=== PATIENT | female | born 1985 | race Two or more races ===

== ENCOUNTER 2019-02-18 05:05 | Inpatient (IN) | payer OTHER ==
[2019-02-18 06:13] LABS: BASO % 0.5 % (0-2.0); EOS % 0.8 % (0-4.5); HEMATOCRIT 39.6 % (32.4-45.2); HEMOGLOBIN 13.8 GM/dL (10.7-15.3); LYMPH % 24.1 % (8-40); MEAN CELL VOLUME 94.4 fl (80-96); MEAN PLT VOLUME 7.4 fl (7.5-11.1); MONO % 12.6 % (3.8-10.2); PLATELET COUNT 274 K/MM3 (134-434); RBC 4.19 M/mm3 (3.60-5.2); RDW 13.2 % (11.6-15.6); WHITE BLOOD COUNT 7.7 K/mm3 (4.0-10.0)
[2019-02-18] MEDS ORDERED: AMPICILLIN SODIUM 2 GM VIAL ONE (06:26)
[2019-02-18 06:28] LABS: INR 0.94 (0.83-1.09); PROTHROMBIN TIME (PATIENT) 11.1 SEC (9.7-13.0)
[2019-02-18 06:30] LABS: ACTIVATED PTT 30.8 SECONDS (25.2-36.5)
[2019-02-18] MEDS ORDERED: AMPICILLIN - 2 GM in SODIUM CHLORIDE 100 ML IVPB STA (06:52)
[2019-02-18 06:59] VITALS: BMI 30.1
[2019-02-18] MEDS ORDERED: ELECTROLYTE-148 SOLN 500 ML IV ONE (07:00)
[2019-02-18 07:20] LABS: BLOOD UREA NITROGEN 8.1 mg/dL (7-18); CALCIUM 8.4 mg/dL (8.5-10.1); CREATININE 0.5 mg/dL (0.55-1.3); POTASSIUM 3.7 mmol/L (3.5-5.1)
[2019-02-18] MEDS ORDERED: OXYTOCIN 30 UNITS in 0.9% NS 30 UNIT/500 ML INFUS.BAG IVPB SCH (08:00)
[2019-02-18] MEDS ORDERED: ELECTROLYTE-148 SOLN 1,000 ML IV SCH (08:00)
--- NOTE | 2019-02-18 08:06 | HP ---
Past Medical History - Primary Care Physician PCP:: Blanca Guzmán - Admission Chief Complaint: 34 yrs 40 weeks iup srom since 4.30 am followed by pain History of Present Illness: pnc at , [facility] wt gain 25 lbs panel :07/25/18 : O pos, rpr nr, hbsag neg, rubella immune, sickle neg , rpr nr, hiv neg, pap -nilm, hpv neg, gc/ct neg , cf screen neg 11/18/18: 1 hr gct 140, Quantiferon neg 01/20/19 h/h 13./41.0, gc/ct neg, GBS POs , Hiv neg serial sono for growth were done by [facility] Ntt screen & AFP neg last sono 02/16/19 : 39 .5 wks, vx, afi20.1,efw 7'13"( 40 %tile ) , , bpp8/8, post placenta History Source: Patient, Medical Record - Past Medical History MATERIALS DIRECTOR: No: Migraine, Syncope Cardiovascular: No: HTN, Murmur Pulmonary: No: Asthma Gastrointestinal: Yes: Constipation Hepatobiliary: No: Hepatitis B, Hepatitis C Renal/: No: UTI ...: 4 ...Para: 1 (06/06/06 ;41 weeks ?5' at [facility] hosp) ...Term: 1 ...: 0 ...Spon : 1 (10/23) ...Induced : 1 (01/27) ...Multiple Gestation: 0 ...LMP: 05/24/18 ... Weeks Gestation by Dates: 38.4 ...EDC by Dates: 02/28/19 ...EDC by Sono: 02/18/19 Heme/Onc: No: Anemia Infectious Disease: Yes: STD's (h/o chlamydia in past). No: AIDS, HIV, MRSA, Tuberculosis Psych: No: Addictions, Anxiety, Bipolar, Depression, Panic, Psychosis, Schizophrenia, Other Endocrine: No: Diabetes Insipidus, Diabetes Mellitus, Hyperthyroidism, Hypothyroidism - Past Surgical History Past Surgical History: Yes: None Hx Myomectomy: No Hx Transabdominal Cerclage: No Additional Surgical History: h/o liposuction - Smoking History Smoking history: Never smoked Have you smoked in the past 12 months: No - Alcohol/Substance Use Hx Alcohol Use: No - Social History History of Recent Travel: No Home Medications - Allergies Allergies/Adverse Reactions: Allergies Allergy/AdvReac Type Severity Reaction Status Date / Time No Known Drug Allergies Allergy Mild Verified 02/18/19 05:52 seafood Allergy Intermediate Hives Uncoded 02/18/19 05:52 - Home Medications Home Medications: Ambulatory Orders Prenat 115/Iron Fum/Folic/Dss [ 19 Tablet] 1 tab PO DAILY 01/23/19 Physical Exam - Maternity Vital Signs: Vital Signs Temperature 98.5 F 02/18/19 07:00 Pulse Rate 86 02/18/19 07:00 Respiratory Rate 20 02/18/19 07:00 Blood Pressure 99/68 02/18/19 07:00 O2 Sat by Pulse Oximetry (%) Selected Entries 02/18/19 05:05 Temperature 98.1 F Pulse Rate 96 H Respiratory 18 Rate Blood Pressure 130/73 Weight 170 lb Constitutional: Yes: Well Nourished Eyes: Yes: WNL HENT: Yes: WNL, Normocephalic Cardiovascular: Yes: WNL Breast(s): Yes: WNL - Abdominal Exam/OB Fundal Height: 40 Number of Fetuses: Single Presentation: Vertex Contractions: Yes Regularity: Regular Intensity: Moderate Monitor Mode: External Heart Rate (range): 140 Heart Rate Location: Midline Category: I Accelerations: Uniform Decelerations: None - Vaginal Exam/OB Vaginal Bleediing: No Speculum Exam: Yes Dilatation (cm): 1-2 Effacement (%): 60 Amniotic Membrane Status: Ruptured Nitrazine Test: Positive Amniotic Fluid: Yes: Clear Presentation: Vertex/Position Station: -3 (exam at 7.45 AM) - Physical Exam Musculoskeletal: Yes: WNL Extremities: Yes: WNL. No: Calf Tenderness Edema: LLE: 1+, RLE: 1+ Integumentary: Yes: Tattoos Deep Tendon Reflex Grade: Normal +2 ...Motor Strength: WNL Psychiatric: Yes: WNL, Alert, Oriented - Labs Lab Results: CBC, BMP 02/18/19 05:20 02/18/19 05:20 Laboratory Tests 02/18/19 02/18/19 05:20 05:20 PT with INR 11.10 INR 0.94 PTT (Actin FS) 30.8 Blood Type O POSITIVE Antibody Screen Negative Problem List - Problems (1) 40 weeks gestation of Code(s): Z3A.40 - 40 WEEKS GESTATION OF (2) SROM (spontaneous rupture of membranes) Code(s): HWC2106 - (3) Positive GBS test Code(s): B95.1 - STREPTOCOCCUS, GROUP B, CAUSING DISEASES CLASSD ELSWHR Assessment/Plan 34 yrs , 40 weeks, gbs pos , admitted due to SROM , irregular UC Plan pitocin augmentation vaginal delivery trial Ampicillin prophylaxis for Pos Gbs
[2019-02-18] MEDS ORDERED: OXYTOCIN 30 UNITS in 0.9% NS 30 UNIT/500 ML INFUS.BAG IVPB ONE (08:20)
[2019-02-18] MEDS ORDERED: FENTANYL/BUPIVACAINE/NS/PF - PCEA - 50 ML DISP.SYRIN EP ONE ×2 (10:06→15:04)
[2019-02-18] MEDS ORDERED: AMPICILLIN SODIUM 1 GM VIAL ONE ×2 (10:07→14:41)
[2019-02-18] MEDS: AMPICILLIN - 1 GM in SODIUM CHLORIDE 100 ML IVPB SCH ×2 (10:15→14:15)
[2019-02-18] MEDS ORDERED: LIDO 2%/EPI 1:200000 PRESRVFRE (20 ML SDVIAL) ONE (10:54)
[2019-02-18] MEDS ORDERED: BUPIVACAINE HCL/PF 2.5 MG/ML - 30 ML VIAL IJ ONE (10:54)
[2019-02-18] MEDS ORDERED: NALOXONE HCL 0.4 MG/ML VIAL IVPUSH PRN (11:13)
[2019-02-18] MEDS ORDERED: FENTANYL/BUPIVACAINE/NS/PF - PCEA - 50 ML DISP.SYRIN EP SCH (11:15)
[2019-02-18] MEDS ORDERED: OXYTOCIN 20 UNITS in 0.9% NS 20 UNIT/1,000 ML INFUS.BAG IV ONE (15:02)
[2019-02-18] MEDS ORDERED: LIDOCAINE HCL 1% PRESERVATIVE FREE - 30ML VIAL ONE (15:02)
--- NOTE | 2019-02-18 15:12 | PN ---
Progress Note, Labor Vaginal Exam #1 Labor Exam Date: 02/18/19 Labor Exam Time: 10:10 Heart Rate (range): 135 Dilatation: 2-3 cm Effacement (%): 70 Amniotic Membrane Status: Ruptured Presentation: Vertex/Position Station: -3 (-3/-2) Remarks: fhr cat-1 uc - 2-4 min Pitocin augmentation started at 8.25 AM Vaginal Exam #2 Labor Exam Date: 02/18/19 Labor Exam Time: 15:00 Heart Rate (range): 140 Dilatation: 7-8 Effacement (%): 100 Amniotic Membrane Status: Ruptured Presentation: Vertex/Position Station: 0 Remarks: fhr cat-1 sometimes cat-2 , small variable down to 100 15 sec pt wants to push refrained from pushing 11.10 AM epidural labor analgesia was given Vaginal Exam #3 Labor Exam Date: 02/18/19 Labor Exam Time: 16:10 Heart Rate (range): 110-120 Dilatation: 10 Effacement (%): 100 Amniotic Membrane Status: Ruptured Presentation: Vertex/Position Station: +3 Remarks: pt pushing Selected Entries 02/18/19 15:30 Pulse Rate 115 H Blood Pressure 120/73
[2019-02-18] MEDS: OXYTOCIN 20 UNITS in 0.9% NS 20 UNIT/1,000 ML INFUS.BAG IV SCH (16:30)
[2019-02-18] MEDS ORDERED: BENZOCAINE 20% 57 GM BOTTLE TP PRN (16:59)
[2019-02-18] MEDS ORDERED: WITCH HAZEL 50% (TUCKS) 40 PAD/JAR PAD TP PRN (16:59)
[2019-02-18] MEDS ORDERED: BENZOCAINE 28 GM HEMORRHOIDAL OINTMENT TP PRN (16:59)
[2019-02-18] MEDS ORDERED: METHYLERGONOVINE MALEATE 0.2 MG/1 ML AMP IM PRN (16:59)
[2019-02-18] MEDS ORDERED: BISACODYL 10 MG SUPP.RECT RC PRN (16:59)
--- NOTE | 2019-02-18 17:25 | PN ---
Delivery - Delivery Vaginal Delivery: No Problems, Spontaneous (, vx MARY position, cord around neckx1 released before the delivery of shoulder , cord around arm x1 , released before delivery of the body , apgar9/9 , baby girl ,median epi was given , placenta & membranes delievered completlely .cord segment sent for cord blood gas & cord blood collected . trivascular cord noted . episiotomy sutured in layers with chr catgut #2/0 .CO ex mucosa & sphincter was intact) Type of Anesthesia: Local, Epidural Episiotomy/Laceration: Midline EBL (cc): 350 Delivery, Single - Stages of Labor Date 1st Stage Initiatied: 02/18/19 Time 1st Stage Initiated: 07:00 Date 2nd Stage Initiated: 02/18/19 Time 2nd Stage Initiated: 16:10 Date of Delivery: 02/18/19 Time of Delivery: 16:24 Date Placenta Delivered: 02/18/19 Time Placenta Delivered: 16:30 Placenta: Yes: Spontaneous, Uterine Exploration - Condition of Infant Cardiac Surgeon/Cardiology Physician Assistant Present: No Gender: Female Weight: 7 lb 12 oz Position: Right, OA (cord around neck x1 & cord around arm x1) - 1 Minute Total Score: 9 5 Minutes Total Score: 9 - Feeding Plan Initial Plan: Elected not to breastfeed exclusively throughout hospitalization Remarks - Remarks Remarks: 34 yrs , 40 weeks admitted in labor with SROM gbs pos , she received tota 3 doses of iv ampicillin intrapartum course uneventful
[2019-02-18] MEDS: FERROUS SO4 325 MG TABLET (FP) PO SCH (18:32)
[2019-02-18] MEDS ORDERED: ACETAMINOPHEN 325 MG TABLET (FP) ONE (19:45)
[2019-02-18] MEDS: IBUPROFEN 600 MG TABLET (FP) PO PRN (19:45)
[2019-02-18] MEDS ORDERED: IBUPROFEN 600 MG TABLET (FP) PO ONE (19:46)
[2019-02-18] MEDS: ACETAMINOPHEN 325 MG TABLET (FP) PO PRN (20:02)
[2019-02-19] MEDS: OXYTOCIN 20 UNITS in 0.9% NS 20 UNIT/1,000 ML INFUS.BAG IV SCH (00:26)
[2019-02-19] MEDS: ACETAMINOPHEN 325 MG TABLET (FP) PO PRN ×4 (00:26→19:10)
[2019-02-19] MEDS: IBUPROFEN 600 MG TABLET (FP) PO PRN ×2 (00:26→05:07)
[2019-02-19 08:08] LABS: BASO % 0.2 % (0-2.0); EOS % 0.4 % (0-4.5); HEMATOCRIT 37.1 % (32.4-45.2); HEMOGLOBIN 12.6 GM/dL (10.7-15.3); MCH 32.3 pg (25.7-33.7); MCHC 33.9 g/dl (32.0-36.0); MEAN CELL VOLUME 95.1 fl (80-96); MEAN PLT VOLUME 7.8 fl (7.5-11.1); MONO % 11.1 % (3.8-10.2); NEUT % 74.3 % (42.8-82.8); PLATELET COUNT 231 K/MM3 (134-434); RDW 13.3 % (11.6-15.6); WHITE BLOOD COUNT 12.2 K/mm3 (4.0-10.0)
--- NOTE | 2019-02-19 09:35 | PN ---
Post Progress Note - Subjective Subjective: c/o tiredness cramps Post Day: 1 Type of Delivery: Vital Signs: Vital Signs Temperature 98.8 F 02/19/19 06:00 Pulse Rate 76 02/19/19 06:00 Respiratory Rate 18 02/19/19 06:00 Blood Pressure 110/68 02/19/19 06:00 O2 Sat by Pulse Oximetry (%) 100 02/18/19 17:50 Breast Exam: Yes: Soft, Other (BF ). No: Engorged Uterus: Yes: Fundus Firm, Fundus below umbilicus, Non-tender Lochia: Yes: Rubra Lochia, amount: Moderate Extremities: Yes: Calves non-tender Perineum: Yes: Episiotomy (wound healing, no soreness ) Activity: Ambulating - Labs Labs: CBC WBC 12.2 K/mm3 (4.0-10.0) H 02/19/19 07:20 RBC 3.90 M/mm3 (3.60-5.2) 02/19/19 07:20 Hgb 12.6 GM/dL (10.7-15.3) 02/19/19 07:20 Hct 37.1 % (32.4-45.2) 02/19/19 07:20 MCV 95.1 fl (80-96) 02/19/19 07:20 MCH 32.3 pg (25.7-33.7) 02/19/19 07:20 MCHC 33.9 g/dl (32.0-36.0) 02/19/19 07:20 RDW 13.3 % (11.6-15.6) 02/19/19 07:20 Plt Count 231 K/MM3 (134-434) 02/19/19 07:20 MPV 7.8 fl (7.5-11.1) 02/19/19 07:20 Absolute Neuts (auto) 9.0 K/mm3 (1.5-8.0) H 02/19/19 07:20 Neutrophils % 74.3 % (42.8-82.8) 02/19/19 07:20 Lymphocytes % 14.0 % (8-40) D 02/19/19 07:20 Monocytes % 11.1 % (3.8-10.2) H 02/19/19 07:20 Eosinophils % 0.4 % (0-4.5) 02/19/19 07:20 Basophils % 0.2 % (0-2.0) 02/19/19 07:20 Nucleated RBC % 0 % (0-0) 02/19/19 07:20 Problem List - Problems (1) 40 weeks gestation of Code(s): Z3A.40 - 40 WEEKS GESTATION OF (2) SROM (spontaneous rupture of membranes) Code(s): QUU8248 - (3) Positive GBS test Code(s): B95.1 - STREPTOCOCCUS, GROUP B, CAUSING DISEASES CLASSD ELSWHR (4) (normal spontaneous vaginal delivery) Code(s): O80 - ENCOUNTER FOR FULL-TERM UNCOMPLICATED DELIVERY (5) Encounter for care after hospital delivery Code(s): Z39.2 - ENCOUNTER FOR ROUTINE FOLLOW-UP Assessment/Plan stable. plan d/c iv fluids ct pp care
[2019-02-19] MEDS: PRENATAL VITAMINS W/ FOLIC ACID TABLET (FP) PO SCH (09:45)
[2019-02-19] MEDS: FERROUS SO4 325 MG TABLET (FP) PO SCH ×2 (09:45→17:44)
[2019-02-19] MEDS: oxyCODONE HCL 5 MG TABLET PO PRN ×2 (09:49→19:10)
[2019-02-19] MEDS ORDERED: SENNOSIDES/DOCUSATE COMBO (SENNA PLUS) TABLET (UD) PO PRN (22:00)
[2019-02-20] MEDS: IBUPROFEN 600 MG TABLET (FP) PO PRN (03:52)
[2019-02-20] MEDS: oxyCODONE HCL 5 MG TABLET PO PRN (03:52)
--- NOTE | 2019-02-20 08:19 | DS ---
Physical Exam-RESTAURANT ASSISTANT Vital Signs: Vital Signs Temperature 98.3 F 02/19/19 22:00 Pulse Rate 82 02/19/19 22:00 Respiratory Rate 18 02/19/19 22:00 Blood Pressure 123/81 02/19/19 22:00 O2 Sat by Pulse Oximetry (%) 100 02/18/19 17:50 Constitutional: Yes: Well Nourished, Other (cramps tolerable) Eyes: Yes: WNL HENT: Yes: WNL Neck: Yes: WNL Cardiovascular: Yes: WNL Respiratory: Yes: WNL Gastrointestinal: Yes: WNL ...Rectal Exam: Yes: WNL Renal/: No: CVA Tenderness - Left, CVA Tenderness - Right ....Post : Yes: Uterus firm, Uterus non-tender, Moderate lochia rubra ( perineum healing, epi wound , no soreness) Breast(s): Yes: WNL (Bf, not engorged) Musculoskeletal: Yes: WNL Extremities: Yes: WNL. No: Calf Tenderness Edema: LLE: 1+, RLE: 1+ Integumentary: Yes: WNL Neurological: Yes: WNL, Alert, Oriented ...Motor Strength: WNL Psychiatric: Yes: WNL, Alert, Oriented Labs: CBC, BMP 02/19/19 07:20 02/18/19 05:20 Delivery - Delivery Vaginal Delivery: No Problems, Spontaneous (, vx MARY position, cord around neckx1 released before the delivery of shoulder , cord around arm x1 , released before delivery of the body , apgar9/9 , baby girl ,median epi was given , placenta & membranes delievered completlely .cord segment sent for cord blood gas & cord blood collected . trivascular cord noted . episiotomy sutured in layers with chr catgut #2/0 .[place] ex mucosa & sphincter was intact) Type of Anesthesia: Local, Epidural Episiotomy/Laceration: Midline EBL (cc): 350 Delivery, Single - Stages of Labor Date 1st Stage Initiatied: 02/18/19 Time 1st Stage Initiated: 07:00 Date 2nd Stage Initiated: 02/18/19 Time 2nd Stage Initiated: 16:10 Date of Delivery: 02/18/19 Time of Delivery: 16:24 Time Placenta Delivered: 16:30 Placenta: Yes: Spontaneous, Uterine Exploration - Condition of Infant Statement Distribution Clerk/Retail Solar Advisor Present: No Infant Gender: Female Weight: 7 lb 12 oz Position: Right, OA (cord around neck x1 & cord around arm x1) Total Hours ROM (Hrs/Mins): 12Hrs/0Mins - 1 Minute Total Score: 9 5 Minutes Total Score: 9 - Feeding Plan Initial Plan: Elected not to breastfeed exclusively throughout hospitalization Remarks - Remarks Remarks: 34 yrs , 40 weeks admitted in labor with SROM gbs pos , she received tota 3 doses of iv ampicillin intrapartum course uneventful pp course uneventful discharge today Discharge Summary Problems reviewed: Yes Reason For Visit: LABOR Current Active Problems 40 weeks gestation of (Acute) Encounter for care after hospital delivery (Acute) (normal spontaneous vaginal delivery) (Acute) Positive GBS test (Acute) SROM (spontaneous rupture of membranes) (Acute) Procedures: Principal: Hospital Course: uneventful Health Concerns: none Plan of Treatment: as directed Goals: maternal , well being Condition: Stable - Instructions Diet, Activity, Other Instructions: Post Instructions DIET: Continue good diet high in protein, calcium, and iron rich foods. Drink at least eight (8) glasses of water daily in addition to other fluids. ct Regular diet MEDICATIONS: Continue vitamins and iron as previously directed. Motrin and Tylenol may be taken for minor discomfort. ACTIVITY: Mild to moderate exercise may be started in two (2) weeks. Take frequent rest periods. Resume normal activity after six (6) week check up. WOUND CARE OF OPERATIVE SITE: Continue use of perineal bottle until vaginal discharge stops. Keep area clean. Shower daily. Keep abdominal wound dry. Report any drainage or redness to physician. Tub baths, tampons and douches are not permitted for [address] Breast feeding & or Bottle feeding BREAST CARE: (For those that are not ): If engorgement occurs: Wear tight fitting bra. Take Tylenol or Motrin for pain. Apply cold packs (ice in bags to each breast ) FAMILY PLANNING: There are many control alternatives to pursue and they should be discussed at your first office visit. You may resume sexual activity after your six (6) week check up. (Remember, is not a contraceptive) NEXT PHYSICIAN APPOINTMENT: Be certain to call for a four (4 ) week appointment, unless otherwise directed. Call Clinic or got to Emergency Dept if you have any of the following: Heavy vaginal bleeding Painful urination Leg pain Unusual odor noted to vaginal bleeding High fever Red streaking noted on breast Referrals: Blanca Guzmán MD [Staff Physician] - Disposition: HOME - Home Medications Comprehensive Discharge Medication List: Ambulatory Orders Prenat 115/Iron Fum/Folic/Dss [ 19 Tablet] 1 tab PO DAILY 01/23/19 Acetaminophen [Tylenol .Regular Strength -] 650 mg PO Q3H PRN tablet 02/19/19 Benzocaine [Americaine 20% [place] -] 1 spray TP PRN PRN bottle 02/19/19 Ibuprofen [Motrin -] 200 mg PO Q4H PRN tablet 02/19/19 Vitamins (Sjr) - 1 tab PO DAILY 1 Days #30 tablet 02/19/19 Witch Susan 50% (Tucks) [Tucks Pads -] 1 pad TP PRN PRN pad 02/19/19 Prescription Drug Monitoring Program (I-STOP) results: I-STOP reviewed and no issues identified
[2019-02-20] MEDS: FERROUS SO4 325 MG TABLET (FP) PO SCH (08:20)
[2019-02-20 08:56] VITALS: BP 123/87; PULSE 73; TEMP 97.7
[2019-02-20] MEDS: PRENATAL VITAMINS W/ FOLIC ACID TABLET (FP) PO SCH (10:37)
[2019-02-21 11:29] LABS: POC NITRAZINE POS
== END 2019-02-20 11:00 | disposition home or self-care (01) | DRG 807 ==
LOC: JLDR 05:05 → J3W 20:40
PROVIDERS: ADMIT Obstetrics & Gynecology; ATTEND Obstetrics & Gynecology
PROC: 10E0XZZ Delivery of Products of Conception, External Approach (ICD-10-PCS; principal; 2019-02-18)
PROC: 0W8NXZZ Division of Female Perineum, External Approach (ICD-10-PCS; 2019-02-18)
DX: O69.81X0 Labor and delivery complicated by cord around neck, without compression, not applicable or unspecified (principal); Z37.0 Single live birth; Z22.330 Carrier of Group B streptococcus; Z3A.40 40 weeks gestation of pregnancy
CPT/HCPCS: 36415; 36600; 59409; 80048; 82803; 83986-QW; 85025; 85610; 85730; 86593; 86850; 86900; 86901